=== PATIENT | male | born 1955 | race Caucasian/White ===

== ENCOUNTER 2024-02-29 15:58 | Inpatient (IN) | payer OTHER ==
[2024-02-29 17:11] LABS: BASO % 0.5 % (0-2.0); EOS % 1.2 % (0-4.5); HEMATOCRIT 40.2 % (35.4-49); HEMOGLOBIN 13.6 GM/dL (11.7-16.9); LYMPH % 47.1 % (8-40); MCH 30.8 pg (25.7-33.7); MCHC 33.8 g/dl (32.0-35.9); MEAN CELL VOLUME 91.3 fl (80-96); MEAN PLT VOLUME 6.9 fl (7.5-11.1); MONO % 5.2 % (3.8-10.2); PLATELET COUNT 273 10^3/uL (134-434); RBC 4.41 M/mm3 (4.00-5.60); WHITE BLOOD COUNT 6.5 K/mm3 (4.0-10.0)
[2024-02-29 17:30] LABS: POTASSIUM 4.4 mmol/L (3.5-5.1)
[2024-02-29 17:32] LABS: ALBUMIN 3.7 g/dl (3.4-5.0); CALCIUM 8.7 mg/dL (8.5-10.1); MAGNESIUM 1.5 mg/dL (1.8-2.4)
[2024-02-29 17:33] LABS: BLOOD UREA NITROGEN 20.5 mg/dL (7-18)
[2024-02-29 17:36] LABS: CREATININE 0.7 mg/dL (0.55-1.3)
[2024-02-29 17:37] LABS: BILIRUBIN,TOTAL 0.6 mg/dL (0.2-1); TOT PROT 7.2 g/dl (6.4-8.2)
[2024-02-29] MEDS ORDERED: dilTIAZem HCL 125 MG/25 ML - 25 ML VIAL ONE (18:07)
[2024-02-29] MEDS ORDERED: MAGNESIUM SULFATE IN WATER 2 GM/50 ML IVPB IVPB ONE (18:07)
[2024-02-29] MEDS: MAGNESIUM SULFATE IN WATER 2 GM/50 ML IVPB IVPB ONE (18:24)
[2024-02-29] MEDS: dilTIAZem HCL 50 MG/10 ML - 10 ML VIAL IVPUSH ONE ×2 (18:24→23:15)
[2024-02-29 18:37] LABS: INR 1.15 (0.83-1.09); PROTHROMBIN TIME (PATIENT) 12.9 SEC (9.7-13.0)
[2024-02-29 18:40] LABS: ACTIVATED PTT 33.2 SECONDS (25.2-36.5)
[2024-02-29 18:45] LABS: POTASSIUM 3.7 mmol/L (3.5-5.1)
[2024-02-29 18:47] LABS: CALCIUM 8.4 mg/dL (8.5-10.1)
[2024-02-29 18:48] LABS: BLOOD UREA NITROGEN 19.3 mg/dL (7-18)
[2024-02-29 18:51] LABS: CREATININE 0.7 mg/dL (0.55-1.3)
[2024-02-29] MEDS ORDERED: oxyCODONE HCL 5 MG TABLET ONE (18:51)
[2024-02-29] MEDS ORDERED: POTASSIUM CHLORIDE ORAL LIQUID 20 MEQ/15 ML ONE (18:51)
[2024-02-29] MEDS ORDERED: dilTIAZem HCL 30 MG TABLET ONE (18:51)
[2024-02-29] MEDS: POTASSIUM CHLORIDE ORAL LIQUID 20 MEQ/15 ML PO ONE (18:56)
[2024-02-29] MEDS: oxyCODONE HCL 5 MG TABLET PO ONE (18:56)
[2024-02-29] MEDS: dilTIAZem HCL 30 MG TABLET PO ONE (18:57)
[2024-02-29 20:34] VITALS: BMI 31.2
[2024-02-29] MEDS: FUROSEMIDE 40 MG/4 ML INJECTABLE VIAL IVPUSH ONE (22:15)
[2024-02-29] MEDS: DIGOXIN 0.5 MG/2 ML AMPUL IVPUSH ONE (22:15)
[2024-02-29] MEDS: LIDOCAINE 4% PATCH TP ONE (22:41)
[2024-02-29] MEDS: LIDOCAINE PATCH REMOVAL MC SCH (22:42)
[2024-02-29] MEDS ORDERED: ONDANSETRON 4 MG/2 ML VIAL IVPUSH PRN (23:24)
[2024-02-29] MEDS: ONDANSETRON 4 MG/2 ML VIAL IVPUSH ONE (23:32)
[2024-03-01] MEDS: dilTIAZem HCL 30 MG TABLET PO SCH
[2024-03-01] MEDS ORDERED: cloNIDine HCL 0.1 MG TABLET PO PRN ×2 (02:01→03:40)
[2024-03-01] MEDS ORDERED: PATIENT'S OWN MEDICATION (NON-FORMULARY) (Oxycodone Hcl/Acetaminophen [Oxycodone-Acetamino PO PRN ×2 (02:01→03:41)
[2024-03-01] MEDS: ACETAMINOPHEN 1000 MG/100 ML BAG IVPB ONE (02:25)
[2024-03-01] MEDS: DIGOXIN 0.5 MG/2 ML AMPUL IVPUSH ONE (03:00)
[2024-03-01] MEDS: ACETAMINOPHEN 325 MG TABLET (FP) PO PRN (07:56)
[2024-03-01 08:20] LABS: HEMATOCRIT 43.1 % (35.4-49); HEMOGLOBIN 14.3 GM/dL (11.7-16.9); MCH 30.1 pg (25.7-33.7); MCHC 33.1 g/dl (32.0-35.9); MEAN PLT VOLUME 7.4 fl (7.5-11.1); PLATELET COUNT 264 10^3/uL (134-434); RBC 4.74 M/mm3 (4.00-5.60); RDW 16.7 % (11.9-15.9); WHITE BLOOD COUNT 7.2 K/mm3 (4.0-10.0)
[2024-03-01 08:24] LABS: POTASSIUM 3.7 mmol/L (3.5-5.1)
[2024-03-01 08:32] LABS: CALCIUM 8.8 mg/dL (8.5-10.1)
[2024-03-01 08:33] LABS: ALBUMIN 4.2 g/dl (3.4-5.0); BLOOD UREA NITROGEN 19.4 mg/dL (7-18); MAGNESIUM 1.4 mg/dL (1.8-2.4)
[2024-03-01 08:35] LABS: BILIRUBIN,TOTAL 1.2 mg/dL (0.2-1); TOT PROT 7.6 g/dl (6.4-8.2)
[2024-03-01 08:36] LABS: CREATININE 0.9 mg/dL (0.55-1.3); PHOSPHOROUS 2.7 mg/dL (2.5-4.9)
[2024-03-01] MEDS: DIGOXIN 0.25 MG TABLET PO SCH (09:27)
[2024-03-01] MEDS: LISINOPRIL 5 MG TABLET PO SCH (09:29)
[2024-03-01] MEDS ORDERED: METOPROLOL TARTRATE 25 MG TABLET (FP) PO SCH (10:15)
[2024-03-01] MEDS: EMTRICITAB/RILPIVIRI/TENOF ALA (ODEFSEY) TABLET PO SCH (10:41)
[2024-03-01] MEDS ORDERED: MAGNESIUM 2GM/50ML STERILE WATER IVPB IVPB ONE (13:18)
[2024-03-01] MEDS: oxyCODONE HCL 5 MG TABLET PO PRN (13:42)
[2024-03-01 14:48] LABS: URINE APPEARANCE CLEAR; URINE BILIRUBIN NEGATIVE (NEGATIVE); URINE COLOR YELLOW; URINE GLUCOSE (UA) 3+ (NEGATIVE); URINE KETONE 1+ (NEGATIVE)
[2024-03-01 14:49] LABS: URINE LEUK ESTERASE NEGATIVE (NEGATIVE); URINE NITRITE NEGATIVE (NEGATIVE); URINE PROTEIN 3+ (NEGATIVE)
[2024-03-01] MEDS: MAGNESIUM 2GM/50ML STERILE WATER IVPB IVPB ONE (14:53)
[2024-03-01] MEDS: MAGNESIUM SULF 50% (8.12 MEQ/2 ML-1 GM VIAL) IVPB ONE (16:40)
[2024-03-01] MEDS: RIVAROXABAN 20 MG TABLET PO SCH (17:11)
[2024-03-01] MEDS ORDERED: MIRTAZAPINE 15 MG TABLET (FP) ONE (21:36)
[2024-03-01] MEDS ORDERED: traZODone HCL 100 MG TABLET (FP) PO SCH (22:00)
[2024-03-01] MEDS: FAMOTIDINE 20 MG/50 ML IVPB 20 MG/50 ML MG IVPB SCH (22:04)
[2024-03-01] MEDS: MIRTAZAPINE 30 MG TABLET PO SCH (22:04)
[2024-03-01] MEDS: ATORVASTATIN CA 40 MG TABLET (FP) PO SCH (22:05)
[2024-03-01] MEDS: traZODone HCL 50 MG TABLET (FP) PO SCH (22:05)
[2024-03-02 07:56] LABS: CHOLESTEROL 148 mg/dL (50-200)
[2024-03-02 07:57] LABS: LDL CHOLESTEROL (ONLY SJRH) 67 mg/dL (5-100)
[2024-03-02 07:59] LABS: HDL CHOLESTEROL 66 mg/dL (40-60)
[2024-03-02 09:23] VITALS: RESP 18
[2024-03-02] MEDS ORDERED: SIMETHICONE 80 MG TAB.CHEW (FP) PO PRN (16:25)
[2024-03-02] MEDS: SIMETHICONE 80 MG TAB.CHEW (FP) PO SCH (16:34)
[2024-03-02] MEDS: INSULIN ASPART SLIDING SCALE (NOVOLOG) 1 VIAL SQ SCH (16:47)
[2024-03-02] MEDS ORDERED: MIRTAZAPINE 15 MG TABLET (FP) ONE (20:23)
[2024-03-03 05:42] VITALS: PULSE 97
[2024-03-03 08:19] LABS: BASO % 0.7 % (0-2.0); EOS % 4.4 % (0-4.5); HEMATOCRIT 39.8 % (35.4-49); HEMOGLOBIN 13.6 GM/dL (11.7-16.9); LYMPH % 46.4 % (8-40); MCH 31.2 pg (25.7-33.7); MCHC 34.3 g/dl (32.0-35.9); MEAN PLT VOLUME 7.7 fl (7.5-11.1); MONO % 9.3 % (3.8-10.2); NEUT % 39.2 % (42.8-82.8); PLATELET COUNT 215 10^3/uL (134-434); RBC 4.38 M/mm3 (4.00-5.60); RDW 16.8 % (11.9-15.9); WHITE BLOOD COUNT 5.2 K/mm3 (4.0-10.0)
[2024-03-03 08:22] LABS: POTASSIUM 3.8 mmol/L (3.5-5.1)
[2024-03-03 08:29] LABS: CALCIUM 9.1 mg/dL (8.5-10.1)
[2024-03-03 08:30] LABS: ALBUMIN 3.4 g/dl (3.4-5.0); MAGNESIUM 1.5 mg/dL (1.8-2.4)
[2024-03-03 08:32] LABS: PHOSPHOROUS 3.5 mg/dL (2.5-4.9)
[2024-03-03 08:33] LABS: CREATININE 0.8 mg/dL (0.55-1.3)
[2024-03-03 08:34] LABS: BILIRUBIN,TOTAL 1.3 mg/dL (0.2-1); TOT PROT 6.4 g/dl (6.4-8.2)
[2024-03-03] MEDS: FAMOTIDINE 20 MG TABLET PO SCH (09:27)
[2024-03-03 11:29] VITALS: BP 137/98; TEMP 98.1
== END 2024-03-03 12:54 | disposition home or self-care (01) | DRG 309 ==
LOC: JER 15:58 → JERBED 19:17 → J4W 20:06 → OBSVTOIN 03-01 01:59
PROVIDERS: ADMIT Internal Medicine; ATTEND Internal Medicine
DX: I48.91 Unspecified atrial fibrillation (principal); F11.20 Opioid dependence, uncomplicated; I50.32 Chronic diastolic (congestive) heart failure; I11.0 Hypertensive heart disease with heart failure; Z21 Asymptomatic human immunodeficiency virus [HIV] infection status; E11.9 Type 2 diabetes mellitus without complications; R55 Syncope and collapse; E78.5 Hyperlipidemia, unspecified
CPT/HCPCS: 36415; 71045-TC-FY; 80048; 80053; 80061; 80162; 81003; 81015; 82550; 82553; 82962; 83036; 83735; 83880; 84100; 84443; 84484; 85025; 85027; 85610; 85730; 86850; 86900; 86901; 93005; 93010; 93306-TC; 99285-25; G0378; J0131

== ENCOUNTER 2024-12-07 13:54 | Inpatient (IN) | payer OTHER ==
[2024-12-07 15:47] LABS: BASO % 0.3 % (0-2.0); EOS % 0.3 % (0-4.5); HEMATOCRIT 36.6 % (35.4-49); HEMOGLOBIN 12.2 GM/dL (11.7-16.9); LYMPH % 13.7 % (8-40); MCH 29.1 pg (25.7-33.7); MCHC 33.2 g/dl (32.0-35.9); MEAN CELL VOLUME 87.6 fl (80-96); MEAN PLT VOLUME 7.1 fl (7.5-11.1); MONO % 7.2 % (3.8-10.2); NEUT % 78.5 % (42.8-82.8); PLATELET COUNT 193 10^3/uL (134-434); RBC 4.18 M/mm3 (4.00-5.60); RDW 16.8 % (11.9-15.9); WHITE BLOOD COUNT 6.9 K/mm3 (4.0-10.0)
[2024-12-07 15:50] LABS: EPI CELLS 2 /uL (0-25.1); HYALINE CASTS 0 /uL (0-3.1); PH,URINE 5.5 (5.0-8.0); URINE APPEARANCE CLEAR; URINE BACTERIA 2 /uL (0-1359); URINE BILIRUBIN NEGATIVE (NEGATIVE); URINE COLOR YELLOW; URINE GLUCOSE (UA) 3+ (NEGATIVE); URINE KETONE NEGATIVE (NEGATIVE); URINE LEUK ESTERASE NEGATIVE (NEGATIVE); URINE NITRITE NEGATIVE (NEGATIVE); URINE PROTEIN 1+ (NEGATIVE); URINE RBC 8 /uL (0-23.9); URINE WBC 8 /uL (0-25.8)
[2024-12-07 15:53] LABS: INR 2.84 (0.83-1.09)
[2024-12-07 15:56] LABS: ACTIVATED PTT 39.4 SECONDS (25.2-36.5)
[2024-12-07 16:11] LABS: POTASSIUM 3.8 mmol/L (3.5-5.1)
[2024-12-07 16:12] LABS: CALCIUM 9.1 mg/dL (8.5-10.1)
[2024-12-07 16:14] LABS: ALBUMIN 3.4 g/dl (3.4-5.0); BLOOD UREA NITROGEN 23.5 mg/dL (7-18)
[2024-12-07 16:17] LABS: CREATININE 1.2 mg/dL (0.55-1.3)
[2024-12-07 16:18] LABS: BILIRUBIN,TOTAL 1.3 mg/dL (0.2-1)
[2024-12-07] MEDS ORDERED: ACETAMINOPHEN INJECTION 100 ML ONE ×3 (18:08→18:34)
[2024-12-07] MEDS: ACETAMINOPHEN 1000 MG/100 ML BAG IVPB ONE (18:36)
[2024-12-07 19:15] LABS: VENOUS BASE EXCESS -0.1 mmol/L (-2-2); VENOUS O2 SATURATION 85.1 % (70-80); VENOUS PCO2 34.2 mmHg (38-52); VENOUS PH 7.451 (7.310-7.410)
[2024-12-07] MEDS: SODIUM CHLORIDE 0.9% 1000 ML INFUS.BAG IV STA (19:50)
[2024-12-07] MEDS: HUM PROTHROMBIN CPLX(PCC)4FACT 1,000 UNIT/40 ML VIAL IVPB ONE (19:51)
[2024-12-07 22:39] LABS: OPIATES, URI NEGATIVE (NEGATIVE); PHENCYCLIDINE,URINE NEGATIVE (NEGATIVE); URINE BARBITURATES NEGATIVE (NEGATIVE); URINE BENZODIAZEPINES NEGATIVE (NEGATIVE)
[2024-12-07 22:40] LABS: COCAINE, UR NEGATIVE (NEGATIVE); METHADONE, UR NEGATIVE (NEGATIVE); URINE AMPHETAMINES NEGATIVE (NEGATIVE)
[2024-12-08] MEDS: HUM PROTHROMBIN CPLX(PCC)4FACT 1,000 UNIT/40 ML VIAL IVPB ONE ×2 (01:07→01:36)
[2024-12-08] MEDS ORDERED: IBUPROFEN 400 MG TABLET (FP) PO PRN (05:42)
[2024-12-08] MEDS ORDERED: PATIENT'S OWN MEDICATION (NON-FORMULARY) (Oxycodone Hcl/Acetaminophen [Oxycodone-Acetamino PO PRN (05:43)
[2024-12-08] MEDS ORDERED: oxyCODONE HCL 5 MG TABLET ONE (06:08)
[2024-12-08] MEDS: oxyCODONE HCL 5 MG TABLET PO PRN (06:10)
[2024-12-08 06:34] LABS: BASO % 0.4 % (0-2.0); EOS % 0.8 % (0-4.5); HEMATOCRIT 34.9 % (35.4-49); HEMOGLOBIN 11.5 GM/dL (11.7-16.9); LYMPH % 20.9 % (8-40); MCH 29.2 pg (25.7-33.7); MEAN CELL VOLUME 88.4 fl (80-96); MONO % 10.8 % (3.8-10.2); NEUT % 67.1 % (42.8-82.8); PLATELET COUNT 194 10^3/uL (134-434); RBC 3.94 M/mm3 (4.00-5.60); RDW 17.3 % (11.9-15.9); WHITE BLOOD COUNT 6.4 K/mm3 (4.0-10.0)
[2024-12-08 06:45] LABS: POTASSIUM 3.6 mmol/L (3.5-5.1)
[2024-12-08] MEDS: SIMETHICONE 80 MG TAB.CHEW (FP) PO SCH (06:45)
[2024-12-08 06:46] LABS: BLOOD UREA NITROGEN 19.2 mg/dL (7-18); MAGNESIUM 1.6 mg/dL (1.8-2.4)
[2024-12-08 06:50] LABS: CREATININE 0.8 mg/dL (0.55-1.3); PHOSPHOROUS 2.9 mg/dL (2.5-4.9)
[2024-12-08] MEDS ORDERED: ENOXAPARIN NA (PORCINE) 40 MG/0.4 ML DISP.SYRIN SQ SCH (10:00)
[2024-12-08] MEDS ORDERED: FAMOTIDINE 20 MG TABLET ONE (10:15)
[2024-12-08] MEDS ORDERED: LISINOPRIL 5 MG TABLET ONE (10:15)
[2024-12-08] MEDS ORDERED: DIGOXIN 0.25 MG TABLET ONE (10:15)
[2024-12-08] MEDS ORDERED: MAGNESIUM SULFATE IN WATER 2 GM/50 ML IVPB IVPB ONE (10:15)
[2024-12-08] MEDS: FAMOTIDINE 20 MG TABLET PO SCH (10:32)
[2024-12-08] MEDS: LISINOPRIL 5 MG TABLET PO SCH (10:32)
[2024-12-08] MEDS: EMTRICITAB/RILPIVIRI/TENOF ALA (ODEFSEY) TABLET PO SCH (10:33)
[2024-12-08] MEDS: FLUDROCORTISONE ACETATE 0.1 MG TABLET (FP) PO SCH (10:33)
[2024-12-08] MEDS: DIGOXIN 0.25 MG TABLET PO SCH (10:34)
[2024-12-08] MEDS: DULoxetine HCL 60 MG CAPSULE.DR PO SCH (10:36)
[2024-12-08] MEDS: MAGNESIUM SULFATE IN WATER 2 GM/50 ML IVPB IVPB ONE (10:45)
[2024-12-08 10:50] LABS: BILIRUBIN,DIRECT 0.6 mg/dL (0.0-0.2)
[2024-12-08] MEDS: INSULIN ASPART SLIDING SCALE (NOVOLOG) 1 VIAL SQ SCH (10:52)
[2024-12-08 11:02] LABS: ERYTHROCYTE SEDIMENTATION RATE 87 mm/hr (0-20)
[2024-12-08] MEDS ORDERED: IBUPROFEN 400 MG TABLET (FP) PO ONE (11:17)
[2024-12-08] MEDS: IBUPROFEN 400 MG TABLET (FP) PO PRN (11:19)
[2024-12-08] MEDS ORDERED: INSULIN ASPART SLIDING SCALE (NOVOLOG) 1 VIAL SQ ONE (11:32)
[2024-12-08] MEDS ORDERED: SIMETHICONE 80 MG TAB.CHEW (FP) ONE (12:25)
[2024-12-08] MEDS ORDERED: MONTELUKAST NA 10 MG TABLET PO PRN (15:20)
[2024-12-08 17:00] VITALS: BMI 31.4
[2024-12-08] MEDS ORDERED: DULoxetine HCL 30 MG CAPSULE.DR PO ONE (21:11)
[2024-12-08] MEDS: ARTIFICIAL TEARS OPHTHALMIC DROPS OU ONE (21:48)
[2024-12-08] MEDS: MIRTAZAPINE 15 MG TABLET (FP) PO SCH (21:49)
[2024-12-08] MEDS: ATORVASTATIN CA 40 MG TABLET (FP) PO SCH (21:49)
[2024-12-08] MEDS ORDERED: traZODone HCL 100 MG TABLET (FP) PO SCH (22:00)
[2024-12-08] MEDS: MELATONIN 5 MG TABLETS PO ONE (22:23)
[2024-12-09 07:35] LABS: HEMATOCRIT 35.7 % (35.4-49); HEMOGLOBIN 11.6 GM/dL (11.7-16.9); MCH 28.7 pg (25.7-33.7); MCHC 32.5 g/dl (32.0-35.9); MEAN CELL VOLUME 88.2 fl (80-96); MEAN PLT VOLUME 7.1 fl (7.5-11.1); PLATELET COUNT 230 10^3/uL (134-434); RBC 4.05 M/mm3 (4.00-5.60); RDW 16.7 % (11.9-15.9); WHITE BLOOD COUNT 6.4 K/mm3 (4.0-10.0)
[2024-12-09 07:50] LABS: POTASSIUM 3.6 mmol/L (3.5-5.1)
[2024-12-09 07:57] LABS: ALBUMIN 2.9 g/dl (3.4-5.0); BLOOD UREA NITROGEN 18.8 mg/dL (7-18); MAGNESIUM 1.6 mg/dL (1.8-2.4)
[2024-12-09 08:00] LABS: CREATININE 0.9 mg/dL (0.55-1.3)
[2024-12-09 08:01] LABS: BILIRUBIN,TOTAL 0.8 mg/dL (0.2-1)
[2024-12-09 08:02] LABS: TOT PROT 6.4 g/dl (6.4-8.2)
[2024-12-09] MEDS: DULoxetine HCL 30 MG CAPSULE.DR PO SCH (09:31)
[2024-12-09] MEDS: PANTOPRAZOLE 40 MG TABLET PO SCH (09:32)
[2024-12-09] MEDS: DIGOXIN 0.125 MG TABLET PO SCH (09:32)
[2024-12-09] MEDS: ACETAMINOPHEN 325 MG TABLET (FP) PO PRN (09:40)
[2024-12-09 09:45] VITALS: RESP 18
[2024-12-09] MEDS: RIVAROXABAN 20 MG TABLET PO SCH (11:20)
[2024-12-09 14:33] VITALS: BP 143/97; PULSE 88; TEMP 97.7
== END 2024-12-09 16:37 | disposition home or self-care (01) | DRG 607 ==
LOC: JER 13:54 → JERBED 12-08 02:42 → OBSVTOIN 12-08 05:39 → J4W 12-08 15:26
PROVIDERS: ADMIT Student in an Organized Health Care Education/Training Program; ATTEND Internal Medicine
PROC: 0HBLXZX Excision of Left Lower Leg Skin, External Approach, Diagnostic (ICD-10-PCS; principal; 2024-12-09)
DX: R21 Rash and other nonspecific skin eruption (principal); E87.1 Hypo-osmolality and hyponatremia; I50.32 Chronic diastolic (congestive) heart failure; R50.9 Fever, unspecified; R41.82 Altered mental status, unspecified; G47.30 Sleep apnea, unspecified; I25.10 Atherosclerotic heart disease of native coronary artery without angina pectoris; I11.0 Hypertensive heart disease with heart failure; K76.0 Fatty (change of) liver, not elsewhere classified; E11.9 Type 2 diabetes mellitus without complications; Z21 Asymptomatic human immunodeficiency virus [HIV] infection status; E78.5 Hyperlipidemia, unspecified
CPT/HCPCS: 0241U-QW; 36415; 70450-TC; 71045-TC-FY; 80048; 80053; 80162; 80307; 81003; 82248; 82803; 82962; 83605; 83690; 83735; 84100; 84484; 85025; 85027; 85610; 85651; 85730; 86140; 86705; 86708; 86803; 86850; 86900; 86901; 87040; 87086; 87340; 87517; 88305-TC; 93005; 93010; 93306-TC; 98005; 99285-25; G0378; G0463-25; J0131; J7168

== ENCOUNTER 2025-04-26 07:19 | Day surgery (SDC) | payer OTHER ==
[2025-04-25 12:59] VITALS: BMI 32.4
[2025-04-26] MEDS ORDERED: ACETAMINOPHEN 500 MG TABLET (FP) PO PRN (09:08)
[2025-04-26] MEDS: LIDOCAINE HCL 1% PRESERVATIVE FREE - 30ML VIAL IJ ONE (14:48)
[2025-04-26 18:14] VITALS: BP 128/78; PULSE 80; RESP 20; TEMP 97.3
== END 2025-04-26 15:27 | disposition home or self-care (01) ==
LOC: JASU-SURG 07:19
PROVIDERS: ATTEND Pain Medicine Pain Medicine
PROC: 01HY3MZ Insertion of Neurostimulator Lead into Peripheral Nerve, Percutaneous Approach (ICD-10-PCS; principal; 2025-04-26 13:45)
DX: G89.4 Chronic pain syndrome (principal)
CPT/HCPCS: 64555; C1778

== ENCOUNTER 2025-06-16 19:01 | Emergency (ER) | payer OTHER ==
[2025-06-16 19:11] VITALS: BP 119/74; PULSE 82; RESP 20; TEMP 98.1; BMI 32.8
[2025-06-16] MEDS ORDERED: ACETAMINOPHEN 500 MG TABLET (FP) ONE (19:43)
[2025-06-16] MEDS: ACETAMINOPHEN 500 MG TABLET (FP) PO ONE (19:48)
[2025-06-16 21:07] LABS: HCV DIAGNOSTIC IN-HOUSE W/RFLX NON-REACTIVE (NONREACTIVE)
[2025-06-16 21:12] LABS: HIV INTERPRETATION PRESUMPTIVE POSITIVE (NEGATIVE)
== END 2025-06-16 20:40 | disposition home or self-care (01) ==
LOC: JERFT 19:01
DX: S93.601A Unspecified sprain of right foot, initial encounter (principal); S50.312A Abrasion of left elbow, initial encounter; S50.812A Abrasion of left forearm, initial encounter; W01.0XXA Fall on same level from slipping, tripping and stumbling without subsequent striking against object, initial encounter; X50.1XXA Overexertion from prolonged static or awkward postures, initial encounter; Y92.480 Sidewalk as the place of occurrence of the external cause; Y93.01 Activity, walking, marching and hiking
CPT/HCPCS: 36415; 73610-TC-RT-FY; 73630-TC-RT-FY; 86803; 87389; 99284-25